=== PATIENT | female | born 1980 | race Caucasian/White ===

== ENCOUNTER 2017-08-19 12:30 | Observation (INO) ==
[2017-08-19 13:14] LABS: Basophils % 0.4 %; Eosinophils # 0.1 K/mcL (0.0-0.6); Eosinophils % 1.4 %; Hematocrit 34.4 % (35.3-44.9); Hemoglobin 11.1 g/dL (11.5-15.4); Immature Granulocytes % 0.2 % (0-4); Lymphocytes # 1.3 K/mcL (0.6-4.6); Lymphocytes % 25.3 %; Mean Corpuscular HGB Conc 32.3 g/dL (31.6-35.5); Mean Corpuscular Hemoglobin 29.5 pg (28.0-33.3); Mean Corpuscular Volume 91.5 fL (83.0-100.0); Mean Platelet Volume 10.8 fL (9.4-12.4); Monocytes # 0.3 K/mcL (0.0-1.3); Monocytes % 6.5 %; Neutrophils # 3.3 K/mcL (1.6-8.9); Platelet Count 183 K/mcL (140-400); Red Blood Count 3.76 M/mcL (3.82-4.97); Red Cell Distribution Width 13.2 % (11.5-14.5); Segmented Neutrophils % 66.2 %
[2017-08-19] MEDS ORDERED: Isovue-370 500 ML INFUS..BTL IV ONE ×2 (13:18→15:22)
[2017-08-19 13:20] LABS: Prothrombin Time 10.7 Seconds (9.4-12.1)
--- NOTE | 2017-08-19 13:21 | Emergency Department Note ---
Disposition Clinical Impression: Chest pain Qualifiers: Chest pain type: unspecified Qualified Code(s): R07.9 - Chest pain, unspecified Disposition: Admitted As Inpatient Condition: Fair Instructions: Chest Pain (ED), Anxiety (ED) Reasons to Return/Additional Instructions: Please return immediately for any new or worsening symptoms, especially pain associated with exertion or shortness of breath. Otherwise, refrain from strenuous activity until cleared by your doctor. Follow up with your doctor within 2-4 days. Call [phone] or [phone] if you need a doctor. Make sure to plan appropriate follow-up for the findings of pulmonary nodules on today's CT scan. Referrals: Zunilda Gould CNP [Primary Care Provider] - Forms: ED Satisfaction Letter Time of Disposition: 19:17 Chest Pain HPI - General Chief Complaint: ED Chest Pain Stated Complaint: CP Time Seen by Provider: 08/19/17 13:02 Source: patient, family Limitations: no limitations Vital Signs Reviewed: Yes Nursing Notes Reviewed: Yes - History of Present Illness HPI Narrative: 37-year-old female complains of pressure with chest palpitations that converted to sharp chest pain 3 hours ago, but has been having several days of chest pain. Patient states intensity was 8/10 with radiation of pain down the left upper extremity, chest pain worse with exertion. She also states that she had pain left lateral cervical posterior region started 20 minutes after the onset of chest pain. The onset of her neck and shoulder pain, precipitated patient's increased concern to come to the emergency department. Patient states she had associated left upper extremity weakness and numbness in upper and lower extremities. weakness has resolved but still complains of strange sensation in her left shoulder and left upper extremity. 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 And she usually carries everything with her left arm. Review of symptoms: Patient complained of lightheadedness, dizziness but no headache History of anxiety but states this feels different from her anxiety attacks. Severity scale (1-10): 4 - Related Data Home Medications Medication Instructions Recorded Confirmed Aspirin/Acetaminophen/Caffeine 1 - 2 tab PO DAILY PRN 08/19/17 08/19/17 [Excedrin Migraine Caplet] Ibuprofen [Motrin] 200 mg PO Q4HR PRN 08/19/17 08/19/17 Allergies Allergy/AdvReac Type Severity Reaction Status Date / Time shellfish derived Allergy Anaphylaxis Verified 08/19/17 20:17 nitrofurantoin AdvReac Vomiting Verified 08/19/17 20:17 [From Macrobid] All systems ED: reviewed and negative except as stated. 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 - Social History Smoking Status: Never smoker Alcohol use: Reports: none Drug use: Reports: none Physical Exam Vital Signs Temperature 98.0 F 08/19/17 12:31 Pulse Rate 96 08/19/17 12:31 Respiratory Rate 22 08/19/17 12:31 Blood Pressure 149/80 08/19/17 12:31 O2 Sat by Pulse Oximetry 98 08/19/17 12:31 Temperature 98.0 F 08/19/17 12:31 Pulse Rate 96 08/19/17 12:31 Respiratory Rate 22 08/19/17 12:31 Blood Pressure 149/80 08/19/17 12:31 O2 Sat by Pulse Oximetry 98 08/19/17 12:31 Oxygen Delivery Oxygen Delivery Room Air CONSTITUTIONAL: Well-appearing; well-nourished; A&O X 3, very histrionic and description of her symptoms, in no apparent distress. Patient has GCS 15. HEAD: Normocephalic; atraumatic EYES: PERRL, no scleral icterus NOSE: The nose is normal in appearance without rhinorrhea NECK: No JVD or distended neck veins RESP: Normal chest excursion with respiration; breath sounds clear and equal bilaterally; no wheezes, rhonchi, or rales CARD: Regular rhythm, without murmurs, rub or gallop ABD: Non-distended; non-tender, soft, without rigidity, rebound or guarding,no pulsatile mass CHEST: No pain with palpation SKIN: Normal for age and race; warm and dry without diaphoresis ; no apparent lesions EXTREMITIES: Pulses are 2 plus and equal times 4 extremities, no peripheral edema or calf muscle pain NEUROLOGICAL: Patient is alert and oriented times three. Cranial nerves III- XII are intact. Sensory decreased to palpation left upper extremity, but no motor functions are intact. Strength is 5/5 for flexion and extension in all 4 extremities. Patellar DTRS are equal and intact. Finger to nose testing is equal and normal bilaterally. No dysdiadochokinesis - General Limitations: no limitations General appearance: alert, anxious Course - Reevaluation(s) Reevaluation #1: 0.5 IV Ativan in order for patient's anxiety. Time: 13:56 Reevaluation #2: Patient's contrast studies a CTA change to MR because patient's allergy to contrast. 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 Time: 14:27 Reevaluation #3: Patient pain symptoms are improved after receiving 0.5 mg Ativan. Currently awaiting CT. She is being prophylaxed with Benadryl due to her allergy. Time: 16:35 Additional Reevaluation(s): 1735hrs: Patient was taken him to receive CTS scan of head neck and chest - Consultations Consultation #1: Dr. Moon the hospitalist as except the patient for admission Time: 20:40 Vital Signs Temperature 98.0 F 08/19/17 12:31 Pulse Rate 96 08/19/17 12:31 Respiratory Rate 22 08/19/17 12:31 Blood Pressure 149/80 08/19/17 12:31 O2 Sat by Pulse Oximetry 98 08/19/17 12:31 Temperature 98.0 F 08/19/17 12:31 Pulse Rate 95 08/19/17 20:35 Respiratory Rate 18 08/19/17 20:35 Blood Pressure 119/79 08/19/17 20:35 O2 Sat by Pulse Oximetry 97 08/19/17 20:35 Oxygen Delivery Oxygen Delivery Room Air Chest Pain - [facility] Narrative Medical decision making narrative: Patient's description of her neck pain with neurological deficits in her left upper and lower extremity concerning for possible vertebral artery dissection, aortic dissection and has been sent for CT head, CTA neck and chest. Labs simvastatin patient's chest pain ordered to include CBC, BMP, troponin. Current heart score 2. Patient sent for CTA of the neck and chest but was delayed because of her severe shellfish allergy. Patient was prophylaxed with Benadryl. After appropriate waiting time patient was then sent for CT scans which came back negative for any signs of dissection of the vertebral arteries or aorta. Patient lab work was negative for elevation of troponin Patient's lab work is unremarkable with a troponin that is negative for any elevation after several days of chest pain. It was explained to the patient that she is low risk for adverse cardiac events , but low risk does not mean no risk. She has been instructed to return immediately if she has any worsening symptoms at any time. She is relieved that her workup is negative today to seek follow-up with her primary care physician Zunilda Gould CMP into 4 days. Patient has been advised to use ice to help reduce inflammation of her left- sided trapezius muscles are tender to palpation, as well as her shoulder. She is already taking ibuprofen daily. She has also been instructed to get plenty of rest. Patient understands and agrees to treatment plan. After patient received repeat EKG prior to discharge she stated that she started having chest pain again. Chest pressure is 5/10 intensity and constant. Patient is now been advised to stay for further evaluation inpatient. Patient understands and agrees to treatment plan. Repeat troponin ordered and patient was begun Nitrol trial. Dr. Moon the hospitalist has accepted the patient for admission. Pt is currently pain free after nitroglycerin trial. One inch nitro paste applied to patient's chest. - Lab Data Lab results reviewed: Yes I reviewed the patient's lab results. Lab results narrative: Short CBC 08/19/17 Range/Units 12:49 WBC 5.1 (4.3-11.1) K/mcL Hgb 11.1 L (11.5-15.4) g/dL Hct 34.4 L (35.3-44.9) % Plt Count 183 (140-400) K/mcL Neutrophils # 3.3 (1.6-8.9) K/mcL BMP 08/19/17 Range/Units 12:49 Sodium 136 (136-145) mEq/L Potassium 3.7 (3.5-5.1) mEq/L Chloride 105 (98-107) mEq/L Carbon Dioxide 27 (23-29) mEq/L BUN 12 (6-20) mg/dL Creatinine 0.73 (0.60-1.20) mg/dL Glucose 111 H (70-105) mg/dL Calcium 9.2 (8.6-10.3) mg/dL Cardiac Enzymes 08/19/17 Range/Units 12:49 Troponin I < 0.03 (< 0.04) ng/mL Result diagrams: 08/19/17 12:49 08/19/17 12:49 Lab Results 08/19/17 08/19/17 08/19/17 Range/Units 12:39 12:49 12:49 WBC 5.1 (4.3-11.1) K/mcL RBC 3.76 L (3.82-4.97) M/mcL Hgb 11.1 L (11.5-15.4) g/dL Hct 34.4 L (35.3-44.9) % MCV 91.5 (83.0-100.0) fL MCH 29.5 (28.0-33.3) pg MCHC 32.3 (31.6-35.5) g/dL RDW 13.2 (11.5-14.5) % Plt Count 183 (140-400) K/mcL MPV 10.8 (9.4-12.4) fL Immature Gran % 0.2 (0-4) % Seg Neutrophils % 66.2 % Lymphocytes % 25.3 % Monocytes % 6.5 % Eosinophils % 1.4 % Basophils % 0.4 % Neutrophils # 3.3 (1.6-8.9) K/mcL Lymphocytes # 1.3 (0.6-4.6) K/mcL Monocytes # 0.3 (0.0-1.3) K/mcL Eosinophils # 0.1 (0.0-0.6) K/mcL Basophils # 0.0 (0.0-0.2) K/mcL PT 10.7 (9.4-12.1) Seconds INR 1.0 APTT 30.1 (26.0-36.0) Seconds Sodium 136 (136-145) mEq/L Potassium 3.7 (3.5-5.1) mEq/L Chloride 105 (98-107) mEq/L Carbon Dioxide 27 (23-29) mEq/L BUN 12 (6-20) mg/dL Creatinine 0.73 (0.60-1.20) mg/dL Est GFR ( Amer) > 60 (> 60) Est GFR (Non-Af Amer) > 60 (> 60) BUN/Creatinine Ratio 16 (6-26) Glucose 111 H (70-105) mg/dL Calculated Osmolality 282 (280-300) Calcium 9.2 (8.6-10.3) mg/dL Troponin I < 0.03 (< 0.04) ng/mL Beta HCG, Quant < 1 (Less than 5) mIU/mL 08/19/17 Range/Units 20:09 WBC (4.3-11.1) K/mcL RBC (3.82-4.97) M/mcL Hgb (11.5-15.4) g/dL Hct (35.3-44.9) % MCV (83.0-100.0) fL MCH (28.0-33.3) pg MCHC (31.6-35.5) g/dL RDW (11.5-14.5) % Plt Count (140-400) K/mcL MPV (9.4-12.4) fL Immature Gran % (0-4) % Seg Neutrophils % % Lymphocytes % % Monocytes % % Eosinophils % % Basophils % % Neutrophils # (1.6-8.9) K/mcL Lymphocytes # (0.6-4.6) K/mcL Monocytes # (0.0-1.3) K/mcL Eosinophils # (0.0-0.6) K/mcL Basophils # (0.0-0.2) K/mcL PT (9.4-12.1) Seconds INR APTT (26.0-36.0) Seconds Sodium (136-145) mEq/L Potassium (3.5-5.1) mEq/L Chloride (98-107) mEq/L Carbon Dioxide (23-29) mEq/L BUN (6-20) mg/dL Creatinine (0.60-1.20) mg/dL Est GFR ( Amer) (> 60) Est GFR (Non-Af Amer) (> 60) BUN/Creatinine Ratio (6-26) Glucose (70-105) mg/dL Calculated Osmolality (280-300) Calcium (8.6-10.3) mg/dL Troponin I < 0.03 (< 0.04) ng/mL Beta HCG, Quant (Less than 5) mIU/mL - Radiology Data Radiology results reviewed: Yes I reviewed the patient's radiology results. Chest X-Ray 08/19/17 12:39 IMPRESSION: 1. No acute cardiopulmonary disease. D/ / Alcon Valdez MD / Alcon Valdez MD Interpreting Provider: Alcon Valdez MD Head CT 08/19/17 13:18 IMPRESSION: No acute intracranial abnormality. D/ / Virgil Bhatia MD / Virgil Bhatia MD Interpreting Provider: Virgil Bhatia MD Chest CTA 08/19/17 15:22 IMPRESSION: No evidence of acute abnormality involving the thoracic aorta, noting that evaluation of the root is limited due to cardiac motion. No acute abnormality identified in the chest. Two indeterminate pulmonary nodules in the right lung as detailed above. Follow-up recommendations as below. RECOMMENDATIONS: Fleischner Society guidelines for follow-up and management of incidentally detected pulmonary nodules: Multiple Solid Nodules: Nodule size less than 6 mm In a low-risk patient, no routine follow-up. In a high-risk patient, optional CT at 12 months. - Low risk patients include individuals with minimal or absent history of smoking and other known risk factors. - High risk patients include individuals with a history or smoking or known risk factors. Radiology 2017 http://pubs.rsna.org/doi/full/10.1148/radiol.[email or web address] D/ / 08/19/2017 18:25:59 Gaston Negro MD / terry Interpreting Provider: Gaston Negro MD Neck CTA 08/19/17 15:22 IMPRESSION: 1. Unremarkable CTA of the neck. 2. Dental caries, as above. D/ / 08/19/2017 18:16:19 [facility] Valdez MD / [facility] Inter[facility]ting Provider: Alcon Valdez MD - EKG Data EKG attestation: Yes I reviewed and interpreted this EKG. EKG results narrative: EKG taken 08/19/2017 1235 hrs. shows a sinus tachycardia at a rate of [address] elevations in leads but shows some mild ST depression in V5 and 6 with T-wave inversions in lead 3. No signs of Brugada, Wellens, WPW. Appears EKG for comparison taken 12/03/2015 shows similar waveform morphology seen today with the exception of the V 5& 6 changes and T-wave inversion EKG #2 taken at 1923 [address] shows [address] ST changes and previously earlier today.. Heart Score - Score History: Moderately Suspicious EKG: Non Specific repolarisation Disturbance Age: Less than 45 Risk Factors: No risk factors known Troponin: Less than normal limit HEART Score Total: 2
[2017-08-19 13:23] LABS: Activated Partial Thrombo Time 30.1 Seconds (26.0-36.0)
[2017-08-19] MEDS ORDERED: *HR* LORazepam 2 MG/ML VIAL IVP ONE (13:28)
[2017-08-19] MEDS ORDERED: 0.9 % Sodium Chloride 1,000 ML IVC ONE ×2 (13:28→19:36)
[2017-08-19 13:33] LABS: BUN/Creatinine Ratio 16 (6-26); Blood Urea Nitrogen 12 mg/dL (6-20); Calcium 9.2 mg/dL (8.6-10.3); Carbon Dioxide 27 mEq/L (23-29); Chloride 105 mEq/L (98-107); Glucose 111 mg/dL (70-105); Osmolality,Calculated 282 (280-300); Potassium 3.7 mEq/L (3.5-5.1); Sodium 136 mEq/L (136-145); Troponin I < 0.03 ng/mL (< 0.04); eGFR For African Americans > 60 (> 60); eGFR For Non-African Americans > 60 (> 60)
--- NOTE | 2017-08-19 13:39 | Emergency Department Note ---
Disposition Clinical Impression: Chest pain Qualifiers: Chest pain type: unspecified Qualified Code(s): R07.9 - Chest pain, unspecified Disposition: Home, Self-Care Condition: Good Instructions: Chest Pain (ED), Anxiety (ED) Reasons to Return/Additional Instructions: Please return immediately for any new or worsening symptoms, especially pain associated with exertion or shortness of breath. Otherwise, refrain from strenuous activity until cleared by your doctor. Follow up with your doctor within 2-4 days. Call [phone] or [phone] if you need a doctor. Make sure to plan appropriate follow-up for the findings of pulmonary nodules on today's CT scan. Referrals: Zunilda Gould CNP [Primary Care Provider] - Forms: ED Satisfaction Letter General Adult HPI - General Chief complaint: ED Chest Pain Stated complaint: CP Time Seen by Provider: 08/19/17 13:02 Source: patient, family Limitations: no limitations - History of Present Illness Pain Scale: 4 - Related Data Home Medications Medication Instructions Recorded Confirmed ClonazePAM 08/27/16 08/27/16 Previous Rx's Medication Instructions Recorded Amoxicillin 875 mg PO BID #14 tablet 04/11/17 Allergies Allergy/AdvReac Type Severity Reaction Status Date / Time shellfish derived Allergy Anaphylaxis Verified 04/11/17 17:55 nitrofurantoin AdvReac Vomiting Verified 04/11/17 17:55 [From Macrobid] Constitutional: Denies: fever, chills, weakness ENT ED: Denies: congestion Cardiovascular: Reports: chest pain, palpitations Past Medical History - Past Medical History Medical history: Reports: DVT Surgical history: Reports: Psychiatric history: Reports: anxiety 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 - Social History Smoking Status: Never smoker Smokeless Tobacco Status: No Alcohol use: Reports: none Drug use: Reports: none Physical Exam - General Limitations: no limitations General appearance: alert, anxious Course Vital Signs Temperature 98.0 F 08/19/17 12:31 Pulse Rate 96 08/19/17 12:31 Respiratory Rate 22 08/19/17 12:31 Blood Pressure 149/80 08/19/17 12:31 O2 Sat by Pulse Oximetry 98 08/19/17 12:31 Temperature 98.0 F 08/19/17 12:31 Pulse Rate 98 08/19/17 17:43 Respiratory Rate 18 08/19/17 17:43 Blood Pressure 142/84 08/19/17 17:43 O2 Sat by Pulse Oximetry 99 08/19/17 17:43 Oxygen Delivery Oxygen Delivery Room Air Medical Decision Making - Lab Data Result diagrams: 08/19/17 12:49 08/19/17 12:49 Lab Results 08/19/17 08/19/17 08/19/17 Range/Units 12:39 12:49 12:49 WBC 5.1 (4.3-11.1) K/mcL RBC 3.76 L (3.82-4.97) M/mcL Hgb 11.1 L (11.5-15.4) g/dL Hct 34.4 L (35.3-44.9) % MCV 91.5 (83.0-100.0) fL MCH 29.5 (28.0-33.3) pg MCHC 32.3 (31.6-35.5) g/dL RDW 13.2 (11.5-14.5) % Plt Count 183 (140-400) K/mcL MPV 10.8 (9.4-12.4) fL Immature Gran % 0.2 (0-4) % Seg Neutrophils % 66.2 % Lymphocytes % 25.3 % Monocytes % 6.5 % Eosinophils % 1.4 % Basophils % 0.4 % Neutrophils # 3.3 (1.6-8.9) K/mcL Lymphocytes # 1.3 (0.6-4.6) K/mcL Monocytes # 0.3 (0.0-1.3) K/mcL Eosinophils # 0.1 (0.0-0.6) K/mcL Basophils # 0.0 (0.0-0.2) K/mcL PT 10.7 (9.4-12.1) Seconds INR 1.0 APTT 30.1 (26.0-36.0) Seconds Sodium 136 (136-145) mEq/L Potassium 3.7 (3.5-5.1) mEq/L Chloride 105 (98-107) mEq/L Carbon Dioxide 27 (23-29) mEq/L BUN 12 (6-20) mg/dL Creatinine 0.73 (0.60-1.20) mg/dL Est GFR ( Amer) > 60 (> 60) Est GFR (Non-Af Amer) > 60 (> 60) BUN/Creatinine Ratio 16 (6-26) Glucose 111 H (70-105) mg/dL Calculated Osmolality 282 (280-300) Calcium 9.2 (8.6-10.3) mg/dL Troponin I < 0.03 (< 0.04) ng/mL Beta HCG, Quant < 1 (Less than 5) mIU/mL - Radiology Data Radiology results reviewed: Yes I reviewed the patient's radiology results. Chest X-Ray 08/19/17 12:39 IMPRESSION: 1. No acute cardiopulmonary disease. D/ / Alcon Valdez MD / Alcon Valdez MD Interpreting Provider: Alcon Valdez MD Head CT 08/19/17 13:18 IMPRESSION: No acute intracranial abnormality. D/ / Virgil Bhatia MD / Virgil Bhatia MD Interpreting Provider: Virgil Bhatia MD Chest CTA 08/19/17 15:22 IMPRESSION: No evidence of acute abnormality involving the thoracic aorta, noting that evaluation of the root is limited due to cardiac motion. No acute abnormality identified in the chest. Two indeterminate pulmonary nodules in the right lung as detailed above. Follow-up recommendations as below. RECOMMENDATIONS: Fleischner Society guidelines for follow-up and management of incidentally detected pulmonary nodules: Multiple Solid Nodules: Nodule size less than 6 mm In a low-risk patient, no routine follow-up. In a high-risk patient, optional CT at 12 months. - Low risk patients include individuals with minimal or absent history of smoking and other known risk factors. - High risk patients include individuals with a history or smoking or known risk factors. Radiology 2017 http://pubs.rsna.org/doi/full/10.1148/radiol.[email or web address] D/ / 08/19/2017 18:25:59 Gaston Negro MD / terry Interpreting Provider: Gaston Negro MD Neck CTA 08/19/17 15:22 IMPRESSION: 1. Unremarkable CTA of the neck. 2. Dental caries, as above. D/ / 08/19/2017 18:16:19 Alcon Valdez MD / [facility] Interpreting Provider: Alcon Valdez MD Attestation Statement - Attestation Attestation: I examined this patient and my medical decision-making was reviewed with the Resident Physician. I agree with the documented findings, disposition and treatment plan as described except to the extent set forth below. Patient to the ED with a chief complaint of chest pain. Patient described a sensation in her chest that went to her left arm and leg. Arm and leg symptoms and resolved. Her chest feels better as well. She is complaining of an ache in her posterior left shoulder. No cardiac history. She does have a history of palpitations and has had a Holter monitor in the past. She is in no distress on examination with clear lungs and heart regular rate and rhythm. Plan. Cardiac workup. Her cardiac workup is negative and her imaging is unremarkable. Do not believe she is a dissection. She is low risk for coronary disease. She is to follow- up with her PCP to discuss further outpatient workup. Patient began having chest pain. She has an EKG that shows anteroseptal T-wave flattening. Nonspecific inversion in lead 3. We will admit for further cardiac workup.
[2017-08-19] MEDS ORDERED: MethylPREDNISolone 40 MG/ML VIAL IVP ONE (15:35)
--- NOTE | 2017-08-19 19:00 | Electrocardiograph Report ---
[address] [address] Test Date: 2017-08-19 Pat Name: Zunilda Colin Department: 104 Room: Gender: F Telemetry Monitor: : 1980 Requested By: Ankur Sosa Order Number: [id number] Reading MD: Erika Lai Measurements Intervals [place] Rate: 104 P: 8 GA: 128 QRS: 40 QRSD: 86 T: 12 QT: 322 QTc: 383 Interpretive Statements SINUS TACHYCARDIA ABNORMAL RHYTHM ECG Electronically Signed On 08-19-2017 18:58:34 EDT by Erika Lai
[2017-08-19] MEDS ORDERED: Nitroglycerin 0.4 MG TAB.SUBL SL PRN (19:36)
[2017-08-19] MEDS ORDERED: Nitroglycerin 1 INCH/GM PACKET TP ONE (20:42)
[2017-08-19] MEDS ORDERED: Naloxone 0.4 MG/ML INJ IVP PRN (20:54)
--- NOTE | 2017-08-19 20:58 | Internal Med History&Physical ---
Date of Encounter: 08/19/17 Time of Encounter: 20:55 Internal Medicine - H&P: HPI Chief complaint: Chest pain Admitted From: Emergency Dept Plans for Post Hospital Care: Home History of present illness: Ms. Colin is a 37 year old female with history of obesity, migraine headaches who presents with complaints of chest pressure and palpitation for a few days that has worsened to sharp pressure for the last 3 hours before presentation to the ED this afternoon. She was working today when she experienced the pain and reported significant diaphoresis during the episode. Her boss told her to sit down and then sent her to the ED. The pain was felt in the mid chest with radiation to the left arm and neck. It was worth with exertion. 8/10 in intensity. No alleviating factors. The patient also reports left upper extremity weakness and numbness that has been going on for some time as well. She still complains of feeling strange in the left upper extremity however. 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 In the emergency department given her symptoms she was ruled out aortic or vertebral dissection. She had laboratory workup that was unremarkable including troponins within normal limits. She received initially Ativan for possible anxiety and she did feel somewhat improved with that. She was about to get discharged as her EKG showed some nonspecific finding however she had recurrence of her chest pain and was given nitroglycerin the second time and her symptoms improved significantly. She had a repeat EKG which was similar to the one from prior. EKG showed initially sinus tachycardia with no ST elevation with mild ST depression in V5 and V6 with T-wave inversion in lead 3. This was similar on repeat EKG during her second episode of chest pain. Grandparents both had "massive heart attacks". She used to smoke 1 1/2 pack per day for 5 years but now smoke occasionally when stressed. Been having 2 years of dizziness symptoms and had a holter monitor 2 years ago with occasional PACs and PVCs and a TTE that was unremarkable then. It was attributed to stress at the time. Has been stressed out lately as well. Patient denies any fever, chills, nausea, vomiting, abdominal pain, urinary symptoms, or neurological symptoms. Past Med Surg Social Fam HX - Past Medical History Medical history: DVT Psychiatric history: anxiety - Past Surgical History Surgical History: - Social History Smoking Status: Never smoker Smokeless Tobacco Status: No Alcohol use: none Drug use: none - Family History Father Hx Family Cardiac Disorders: Yes Internal Medicine - H&P: Meds Aspirin/Acetaminophen/Caffeine [Excedrin Migraine Caplet] 1 - 2 tab PO DAILY PRN 08/19/17 [History] Ibuprofen [Motrin] 200 mg PO Q4HR PRN 08/19/17 [History] 3 Allergy/AdvReac Type Severity Reaction Status Date / Time shellfish derived Allergy Anaphylaxis Verified 08/19/17 20:17 nitrofurantoin AdvReac Vomiting Verified 08/19/17 20:17 [From Macrobid] All Systems PM: A 10-system review of systems was performed and is negative for pertinent findings except as documented above in the HPI. Review of systems: All systems reviewed are negative except for as mentioned above - Constitutional Vitals: Temp Pulse Resp BP Pulse Ox 98.0 F 95 18 119/79 97 08/19/17 12:31 08/19/17 20:35 08/19/17 20:35 08/19/17 20:35 08/19/17 20:35 Exam: GEN: NAD HEENT: AT, NC, No cyanosis, oral mucosa is moist, No JVD Lymphatics: No lymphadenoapthy Eyes: Extrocular muscles intact, anicteric CVS:RRR. S1, S2, No m/r/g RESP: CTAB ABD: Soft, NT, ND, +BS EXT: No edema, No rashes, 2+ DP NEURO: Nonfocal, CN II-XII intact, No focal motor or sensory deficits Psych: Cooperative, Not anxious or depressed Internal Med - H&P Results - Labs CBC & Chem 7: 08/19/17 12:49 08/19/17 12:49 Labs: Short CBC 08/19/17 Range/Units 12:49 WBC 5.1 (4.3-11.1) K/mcL Hgb 11.1 L (11.5-15.4) g/dL Hct 34.4 L (35.3-44.9) % Plt Count 183 (140-400) K/mcL Neutrophils # 3.3 (1.6-8.9) K/mcL BMP 08/19/17 12:49 Sodium 136 Potassium 3.7 Chloride 105 Carbon Dioxide 27 BUN 12 Creatinine 0.73 Glucose 111 H Calcium 9.2 Cardiac Enzymes 08/19/17 08/19/17 Range/Units 12:49 20:09 Troponin I < 0.03 < 0.03 (< 0.04) ng/mL - Impressions ITS Impressions Chest X-Ray 08/19/17 12:39 IMPRESSION: 1. No acute cardiopulmonary disease. D/ / Alcon Valdez MD / Alcon Valdez MD Interpreting Provider: Alcon Valdez MD Head CT 08/19/17 13:18 IMPRESSION: No acute intracranial abnormality. D/ / Virgil Bhatia MD / Virgil Bhatia MD Interpreting Provider: Virgil Bhatia MD Chest CTA 08/19/17 15:22 IMPRESSION: No evidence of acute abnormality involving the thoracic aorta, noting that evaluation of the root is limited due to cardiac motion. No acute abnormality identified in the chest. Two indeterminate pulmonary nodules in the right lung as detailed above. Follow-up recommendations as below. RECOMMENDATIONS: Fleischner Society guidelines for follow-up and management of incidentally detected pulmonary nodules: Multiple Solid Nodules: Nodule size less than 6 mm In a low-risk patient, no routine follow-up. In a high-risk patient, optional CT at 12 months. - Low risk patients include individuals with minimal or absent history of smoking and other known risk factors. - High risk patients include individuals with a history or smoking or known risk factors. Radiology 2017 http://pubs.rsna.org/doi/full/10.1148/radiol.[email or web address] D/ / 08/19/2017 18:25:59 Gaston Negro MD / terry Interpreting Provider: Gaston Negro MD Neck CTA 08/19/17 15:22 IMPRESSION: 1. Unremarkable CTA of the neck. 2. Dental caries, as above. D/ / 08/19/2017 18:16:19 Alcon Valdez MD / chase Interpreting Provider: Alcon Valdez MD - Assessment and plan (1) Chest pain Current Visit: Yes Status: Acute Assessment and plan: Admit the patient. Telemetry. Risk factors include obesity, prior smoking history, grandparents with GA's. Symptoms been going on for some time but today sound typical. We will trend cardiac enzymes. Stress test in the morning. Given aspirin in the ED. We will check lipid panel and A1c for risk stratification. Nothing by mouth after midnight Qualifiers: Chest pain type: unspecified Qualified Code(s): R07.9 - Chest pain, unspecified (2) Pulmonary nodule Current Visit: Yes Status: Acute Assessment and plan: Serial follow-ups in the future. (3) DVT prophylaxis Current Visit: Yes Status: Acute Assessment and plan: Heparin subcutaneous - Time Spent With Patient Total time spent is greater than 50% in coordination of care (as documented) at patient's floor/unit and/or counseling patient:
[2017-08-19] MEDS: *HR* Heparin 5,000 UNIT/ML VIAL SQ SCH (22:11)
[2017-08-19] MEDS: Acetaminophen 325 MG TABLET PO PRN (22:24)
[2017-08-20 02:16] LABS: BUN/Creatinine Ratio 15 (6-26); Blood Urea Nitrogen 10 mg/dL (6-20); Calcium 9.4 mg/dL (8.6-10.3); Carbon Dioxide 24 mEq/L (23-29); Chloride 108 mEq/L (98-107); Chol/HDL Ratio 3.1 (0-4.9); Cholesterol 159 mg/dL (< 200); Glucose 219 mg/dL (70-105); HDL Cholesterol 51 mg/dL (40-59); LDL Cholesterol,Calculated 100 mg/dL (0-99); Magnesium 1.9 mg/dL (1.6-2.6); Osmolality,Calculated 292 (280-300); Sodium 138 mEq/L (136-145); Triglycerides 40 mg/dL (< 150); eGFR For African Americans > 60 (> 60); eGFR For Non-African Americans > 60 (> 60)
[2017-08-20] MEDS: *HR* Heparin 5,000 UNIT/ML VIAL SQ SCH ×3 (05:08→22:19)
[2017-08-20] MEDS ORDERED: Regadenoson 0.4 MG/5 ML SYRINGE IVP ONE (05:53)
[2017-08-20] MEDS: Acetaminophen 325 MG TABLET PO PRN ×2 (09:24→20:10)
--- NOTE | 2017-08-20 14:29 | Internal Med Progress Note ---
Date of Encounter: 08/20/17 Time of Encounter: 10:00 - Assessment and plan (1) Chest pain Current Visit: Yes Status: Acute Assessment and plan: She underwent first half of 2 day stress, she will complete second half on Tuesday. No chest pain at this time continue cardiac monitoring lipid panel looks good will monitor as outpatient cont ASA Nitro as needed for CP Qualifiers: Chest pain type: unspecified Qualified Code(s): R07.9 - Chest pain, unspecified (2) Pulmonary nodule Current Visit: Yes Status: Acute Assessment and plan: Follow up and monitor with PCP (3) DVT prophylaxis Current Visit: Yes Status: Acute Assessment and plan: Heparin subcutaneous - Time Spent With Patient Total time spent is greater than 50% in coordination of care (as documented) at patient's floor/unit and/or counseling patient: - Subjective Interval history: Patient seen and examined at bedside. Denies any pain or discomfort at this time. Did have some GERD sx earlier this am. She completed the first half of 2 day stress. She will complete second half on Tuesday. I reviewed plan of care with patient and she verbalized understanding - Constitutional Vitals: Temp Pulse Resp BP Pulse Ox 97.9 F 85 16 130/70 96 08/20/17 11:28 08/20/17 11:28 08/20/17 11:28 08/20/17 11:28 08/20/17 11:28 General appearance: Present: A&O X 3, morbidly obese - Head Head exam: Present: atraumatic, normocephalic - Eye Eye exam: Present: PERRL, conjuntiva pink, sclera anicteric Pupils: Present: PERRL - Neck Neck exam general surgery: Present: supple, trachea midline. Absent: lymphadenopathy - Respiratory Respiratory exam: Present: CTAB. Absent: accessory muscle use, rales, rhonchi, wheezes - Cardiovascular Cardiovascular exam: Present: RRR, +S1, +S2. Absent: diastolic murmur, gallop, rubs, systolic murmur - GI/Abdominal GI/Abdominal exam: Present: normal bowel sounds, soft, no peritoneal signs. Absent: distended, tenderness - Extremities Exam Extremities exam: Present: warm, radial pulses palpable and symmetrical. Absent : calf tenderness, cyanotic, pedal edema - Neurological Exam Neurological exam: Present: CN II-XII intact, oriented X3, no focal deficits. Absent: pronater drift, facial droop, speech deficit - Skin Skin exam: Present: dry, intact Internal Medicine: Result - Labs CBC & Chem 7: 08/19/17 12:49 08/20/17 01:41 Labs: BMP 08/20/17 01:41 Sodium 138 Potassium 4.0 Chloride 108 H Carbon Dioxide 24 BUN 10 Creatinine 0.66 Glucose 219 H Calcium 9.4 Cardiac Enzymes 08/20/17 Range/Units 01:41 Troponin I < 0.03 (< 0.04) ng/mL - ABG Interpretation ABG results: PT/INR, D-dimer PT 10.7 Seconds (9.4-12.1) 08/19/17 12:39 Consult Discharge Plan - Plan Referrals: Zunilda Gould, CARD DOFFER [Primary Care Provider] -
[2017-08-21] MEDS: Acetaminophen 325 MG TABLET PO PRN (05:16)
[2017-08-21] MEDS: *HR* Heparin 5,000 UNIT/ML VIAL SQ SCH ×3 (05:16→21:46)
[2017-08-21 08:20] LABS: Estimated Average Glucose 103 mg/dl; Hemoglobin A1C 5.2 %
[2017-08-21] MEDS: Aspirin 81 MG TAB.CHEW PO SCH (08:38)
--- NOTE | 2017-08-21 10:04 | Internal Med Progress Note ---
Date of Encounter: 08/21/17 Time of Encounter: 10:01 - Assessment and plan (1) Chest pain Current Visit: Yes Status: Acute Assessment and plan: She underwent first half of 2 day stress, she will complete second half on Tuesday. No chest pain at this time -NPO after midnight continue cardiac monitoring lipid panel looks good will monitor as outpatient cont ASA Nitro as needed for CP will check hepatic panel amylase lipase Qualifiers: Chest pain type: unspecified Qualified Code(s): R07.9 - Chest pain, unspecified (2) Pulmonary nodule Current Visit: Yes Status: Acute Assessment and plan: Follow up and monitor with PCP (3) DVT prophylaxis Current Visit: Yes Status: Acute Assessment and plan: Heparin subcutaneous - Time Spent With Patient Total time spent is greater than 50% in coordination of care (as documented) at patient's floor/unit and/or counseling patient: - Subjective Interval history: Patient seen and examined at bedside. Denies any pain or discomfort at this time. Did have some GERD sx earlier this am. She will be NPO after midnight for second half of stress. Reviewed treatment plan with patient Verbalized understanding - Constitutional Vitals: Temp Pulse Resp BP Pulse Ox 98.8 F 62 16 100/65 98 08/21/17 07:35 08/21/17 07:35 08/21/17 07:35 08/21/17 07:35 08/21/17 07:35 General appearance: Present: A&O X 3, morbidly obese - Head Head exam: Present: atraumatic, normocephalic - Eye Eye exam: Present: PERRL, conjuntiva pink, sclera anicteric Pupils: Present: PERRL - Neck Neck exam general surgery: Present: supple, trachea midline. Absent: lymphadenopathy - Respiratory Respiratory exam: Present: CTAB. Absent: accessory muscle use, rales, rhonchi, wheezes - Cardiovascular Cardiovascular exam: Present: RRR, +S1, +S2. Absent: diastolic murmur, gallop, rubs, systolic murmur - GI/Abdominal GI/Abdominal exam: Present: normal bowel sounds, soft, no peritoneal signs. Absent: distended, tenderness - Extremities Exam Extremities exam: Present: warm, radial pulses palpable and symmetrical. Absent : calf tenderness, cyanotic, pedal edema - Neurological Exam Neurological exam: Present: CN II-XII intact, oriented X3, no focal deficits. Absent: pronater drift, facial droop, speech deficit - Skin Skin exam: Present: dry, intact Internal Medicine: Result - Labs CBC & Chem 7: 08/19/17 12:49 08/20/17 01:41 Labs: Cardiac Enzymes 08/20/17 08/20/17 08/21/17 Range/Units 13:40 20:39 02:53 Troponin I < 0.03 < 0.03 < 0.03 (< 0.04) ng/mL 08/21/17 Range/Units 08:47 Troponin I < 0.03 (< 0.04) ng/mL - ABG Interpretation ABG results: PT/INR, D-dimer PT 10.7 Seconds (9.4-12.1) 08/19/17 12:39 - VTE Documentation of Mechanical Device: Intermittent pneumatic compression device Consult Discharge Plan - Plan Referrals: Zunilda Gould, RIGGING UP WORKER [Primary Care Provider] -
[2017-08-22] MEDS: *HR* Heparin 5,000 UNIT/ML VIAL SQ SCH (05:41)
[2017-08-22 05:45] LABS: Albumin 3.7 g/dL (3.5-5.7); Albumin/Globulin Ratio 1.4 (1.1-2.2); Bilirubin,Direct 0.1 mg/dL (0.0-0.2); Bilirubin,Indirect 0.2 mg/dL (0.0-1.2); Bilirubin,Total 0.3 mg/dL (0.3-1.0); Globulin 2.6 g/dL (2.4-3.5); Total Protein 6.3 g/dL (6.4-8.9)
[2017-08-22] MEDS: Aspirin 81 MG TAB.CHEW PO SCH (07:48)
--- NOTE | 2017-08-22 10:14 | Electrocardiograph Report ---
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
--- NOTE | 2017-08-22 11:47 | Discharge Summary ---
- NOTES TO OUTPATIENT PROVIDER Notes to Outpatient Provider: Cardiac stress test negative for ischemia or infarct, suggest outpatient GI follow to rule out GI source Date of Encounter: 08/22/17 Time of Encounter: 11:40 - Discharge Diagnosis (1) Chest pain Priority: Primary Status: Acute Qualifiers: Chest pain type: unspecified Qualified Code(s): R07.9 - Chest pain, unspecified (2) Pulmonary nodule Priority: Primary Status: Acute Hospital course: Ms. Colin is a 37 year old female past medical history of obesity migraine headaches presented to the emergency department after experiencing chest pain and palpitations for a few days the pain worsened approximately 3 hours before presentation. She had associated symptoms of diaphoresis. Pain occurred mid chest radiating to left arm and neck , was aggravated with exertion 8 out of 10 in intensity there were no alleviating factors. Laboratory workup was unremarkable EKG showed some nonspecific findings she was given nitroglycerin in the emergency room which did relieve her symptoms. She states that she has had gallbladder issues in the past and was supposed to have her gallbladder taken out several years ago however has failed to do so. She was admitted and underwent a nuclear stress test which was negative for ischemia or infarct. Advised patient to follow-up with primary care physician as well as she may require outpatient EGD GI workup. Patient verbalized understanding she is hemodynamically stable at this time and is ready for discharge Discharge discussed with: patient - Time Spent with Patient Total time spent providing and/or coordinating discharge services: - Discharge Medications Home Medications: Aspirin/Acetaminophen/Caffeine [Excedrin Migraine Caplet] 1 - 2 tab PO DAILY PRN 08/19/17 [History] Ibuprofen [Motrin] 200 mg PO Q4HR PRN 08/19/17 [History] Allergies/Adverse Reactions: 3 Allergy/AdvReac Type Severity Reaction Status Date / Time shellfish derived Allergy Anaphylaxis Verified 08/19/17 20:17 nitrofurantoin AdvReac Vomiting Verified 08/19/17 20:17 [From Macrobid] Date of admission: 08/19/17 21:29 Primary care physician: Zunilda Gould CNP Discharging clinician: Dana Aguillon Anticipated date of discharge: 08/22/17 - Constitutional Vitals: Temp Pulse Resp BP Pulse Ox 97.9 F 69 16 106/71 97 08/22/17 06:46 08/22/17 06:46 08/22/17 06:46 08/22/17 06:46 08/22/17 06:46 General appearance: Present: A&O X 3, morbidly obese - Head Head exam: Present: atraumatic, normocephalic - Eye Eye exam: Present: PERRL, conjuntiva pink, sclera anicteric Pupils: Present: PERRL - Neck Neck exam general surgery: Present: supple, trachea midline. Absent: lymphadenopathy - Respiratory Respiratory exam: Present: CTAB. Absent: accessory muscle use, rales, rhonchi, wheezes - Cardiovascular Cardiovascular exam: Present: RRR, +S1, +S2. Absent: diastolic murmur, gallop, rubs, systolic murmur - GI/Abdominal GI/Abdominal exam: Present: normal bowel sounds, soft, no peritoneal signs. Absent: distended, tenderness - Extremities Exam Extremities exam: Present: warm, radial pulses palpable and symmetrical. Absent : calf tenderness, cyanotic, pedal edema - Neurological Exam Neurological exam: Present: CN II-XII intact, oriented X3, no focal deficits. Absent: pronater drift, facial droop, speech deficit - Skin Skin exam: Present: dry, intact - Patient Status Disposition: Home, Self-Care Condition: Fair Functional capacity at discharge: independent ambulation - Discharge Instructions Follow Up With: Zunilda Gould CNP [Primary Care Provider] - 08/30/17 11:00 am (Please follow up with your PCP ) - Diet and Activity Activity: resume usual activities as tolerated Diet: advance to your usual diet - VTE Documentation of Mechanical Device: Intermittent pneumatic compression device
[2017-08-22 12:01] VITALS: BP 115/81
--- NOTE | 2017-08-22 18:42 | Electrocardiograph Report ---
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
== END 2017-08-22 12:32 | disposition home or self-care (01) ==
LOC: 3BNU 12:30 → EMEROO 12:30 → 3BNU 21:39
PROVIDERS: ADMIT Internal Medicine; ATTEND Internal Medicine

== ENCOUNTER 2019-11-06 15:58 | Observation (INO) ==
[2019-11-06] MEDS ORDERED: 0.9 % Sodium Chloride 1,000 ML IVC STA (17:07)
[2019-11-06] MEDS ORDERED: Ondansetron 4 MG/2 ML VIAL IVP STA (17:07)
[2019-11-06] MEDS ORDERED: *HR* FentaNYL (PF) 100 MCG/2 ML VIAL IVP ONE (17:17)
[2019-11-06 17:19] LABS: Basophils % 0.3 %; Eosinophils # 0.1 K/mcL (0.0-0.6); Hematocrit 37.7 % (35.3-44.9); Hemoglobin 11.9 g/dL (11.5-15.4); Immature Granulocytes % 0.2 % (0-4); Lymphocytes # 1.4 K/mcL (0.6-4.6); Mean Corpuscular HGB Conc 31.6 g/dL (31.6-35.5); Mean Corpuscular Hemoglobin 30.9 pg (28.0-33.3); Mean Corpuscular Volume 97.9 fL (83.0-100.0); Mean Platelet Volume 10.3 fL (9.4-12.4); Monocytes # 0.4 K/mcL (0.0-1.3); Monocytes % 6.5 %; Neutrophils # 4.2 K/mcL (1.6-8.9); Platelet Count 177 K/mcL (140-400); Red Blood Count 3.85 M/mcL (3.82-4.97); Red Cell Distribution Width 13.1 % (11.5-14.5); White Blood Count 6.1 K/mcL (4.3-11.1)
[2019-11-06 17:25] LABS: Bilirubin,Urine Negative (Negative); Blood,Urine Negative (Negative); Clarity,Urine Clear (Clear); Color,Urine Colorless (Yellow); Glucose,Urine (UA) Normal (Normal); Ketones,Urine Negative (Negative); Leukocyte Esterase,Urine Negative (Negative); Nitrite,Urine Negative (Negative); PH,Urine 6.5 pH Units (5.0-8.0); Protein,Urine Negative (Neg-Trace); Specific Gravity,Urine 1.007 (1.010-1.025); Urobilinogen,Urine Normal (Normal)
[2019-11-06 17:35] LABS: Alanine Aminotransferase 83 Units/L (7-52); Albumin/Globulin Ratio 1.3 (1.1-2.2); Alkaline Phosphatase 75 Units/L (34-104); Aspartate Amino Transferase 48 Units/L (13-39); BUN/Creatinine Ratio 13 (6-26); Bilirubin,Direct 0.1 mg/dL (0.0-0.2); Bilirubin,Indirect 0.2 mg/dL (0.0-1.0); Bilirubin,Total 0.3 mg/dL (0.3-1.0); Blood Urea Nitrogen 11 mg/dL (6-20); Calcium 9.1 mg/dL (8.6-10.3); Carbon Dioxide 26 mEq/L (23-29); Chloride 105 mEq/L (98-107); Globulin 3.2 g/dL (2.4-3.5); Glucose 78 mg/dL (70-105); Lipase 12 Units/L (11-82); Magnesium 2.2 mg/dL (1.6-2.6); Osmolality,Calculated 286 (280-300); Sodium 139 mEq/L (136-145); Total Protein 7.2 g/dL (6.4-8.9); eGFR For African Americans > 60 (> 60); eGFR For Non-African Americans > 60 (> 60)
[2019-11-06] MEDS ORDERED: Ondansetron 4 MG/2 ML VIAL IVP PRN (18:21)
[2019-11-06] MEDS ORDERED: Naloxone 0.4 MG/ML INJ IVP PRN (18:21)
[2019-11-06 18:50] LABS: Triglycerides 130 mg/dL (< 150)
[2019-11-06 18:51] LABS: Troponin I < 0.03 ng/mL (< 0.04)
[2019-11-06] MEDS: Vancomycin Oral Soln 125 MG/2.5 ML UDC PO SCH (21:47)
[2019-11-06] MEDS: 0.9 % Sodium Chloride 1,000 ML IVC SCH (23:25)
[2019-11-07] MEDS ORDERED: *HR* Promethazine 25 MG/ML VIAL IVP ONE (00:24)
[2019-11-07 05:27] LABS: Basophils % 0.7 %; Eosinophils # 0.1 K/mcL (0.0-0.6); Eosinophils % 1.7 %; Hematocrit 31.8 % (35.3-44.9); Immature Granulocytes % 0.2 % (0-4); Lymphocytes # 1.6 K/mcL (0.6-4.6); Lymphocytes % 39.5 %; Mean Corpuscular HGB Conc 31.4 g/dL (31.6-35.5); Mean Corpuscular Hemoglobin 30.9 pg (28.0-33.3); Mean Corpuscular Volume 98.1 fL (83.0-100.0); Mean Platelet Volume 10.6 fL (9.4-12.4); Monocytes # 0.4 K/mcL (0.0-1.3); Monocytes % 8.4 %; Neutrophils # 2.1 K/mcL (1.6-8.9); Platelet Count 147 K/mcL (140-400); Red Blood Count 3.24 M/mcL (3.82-4.97); Red Cell Distribution Width 13.1 % (11.5-14.5); Segmented Neutrophils % 49.5 %; White Blood Count 4.2 K/mcL (4.3-11.1)
[2019-11-07] MEDS: *HR* Heparin 5,000 UNIT/ML VIAL SQ SCH ×2 (05:33→17:12)
[2019-11-07 05:39] LABS: BUN/Creatinine Ratio 10 (6-26); Blood Urea Nitrogen 8 mg/dL (6-20); Calcium 8.4 mg/dL (8.6-10.3); Carbon Dioxide 26 mEq/L (23-29); Chloride 110 mEq/L (98-107); Glucose 82 mg/dL (70-105); Magnesium 2.1 mg/dL (1.6-2.6); Osmolality,Calculated 287 (280-300); Sodium 140 mEq/L (136-145); eGFR For African Americans > 60 (> 60); eGFR For Non-African Americans > 60 (> 60)
[2019-11-07] MEDS: BuPROPion XL (24 HR) 150 MG TABLET PO SCH (08:43)
[2019-11-07] MEDS: Loratadine 10 MG TABLET PO SCH (08:43)
[2019-11-07] MEDS: Vancomycin Oral Soln 125 MG/2.5 ML UDC PO SCH ×4 (08:44→20:29)
[2019-11-07] MEDS: 0.9 % Sodium Chloride 1,000 ML IVC SCH ×3 (08:46→21:51)
[2019-11-07] MEDS ORDERED: clonazePAM 0.5 MG TABLET PO SCH (09:00)
[2019-11-07] MEDS ORDERED: *HR* Promethazine 25 MG/ML VIAL IVP PRN (09:06)
[2019-11-08] MEDS: clonazePAM 1 MG TABLET PO PRN ×2 (01:39→21:43)
[2019-11-08] MEDS: 0.9 % Sodium Chloride 1,000 ML IVC SCH ×2 (02:20→05:46)
[2019-11-08] MEDS ORDERED: *HR* Dextrose 50 % in Water (Vial) 50 ML VIAL IVP ONE (05:33)
[2019-11-08] MEDS: *HR* Heparin 5,000 UNIT/ML VIAL SQ SCH ×2 (05:45→17:14)
[2019-11-08] MEDS: Pantoprazole 40 MG VIAL IVP SCH (09:13)
[2019-11-08] MEDS: Loratadine 10 MG TABLET PO SCH (09:14)
[2019-11-08] MEDS: BuPROPion XL (24 HR) 150 MG TABLET PO SCH (09:14)
[2019-11-08 11:46] LABS: Alanine Aminotransferase 53 Units/L (7-52); Albumin 3.6 g/dL (3.5-5.7); Albumin/Globulin Ratio 1.4 (1.1-2.2); Alkaline Phosphatase 67 Units/L (34-104); Aspartate Amino Transferase 23 Units/L (13-39); BUN/Creatinine Ratio 7 (6-26); Bilirubin,Indirect 0.3 mg/dL (0.0-1.0); Bilirubin,Total 0.3 mg/dL (0.3-1.0); Blood Urea Nitrogen 5 mg/dL (6-20); Calcium 8.4 mg/dL (8.6-10.3); Carbon Dioxide 26 mEq/L (23-29); Chloride 109 mEq/L (98-107); Globulin 2.5 g/dL (2.4-3.5); Glucose 83 mg/dL (70-105); Osmolality,Calculated 284 (280-300); Potassium 3.8 mEq/L (3.5-5.1); Sodium 139 mEq/L (136-145); Total Protein 6.1 g/dL (6.4-8.9); eGFR For African Americans > 60 (> 60); eGFR For Non-African Americans > 60 (> 60)
[2019-11-08] MEDS ORDERED: Acetaminophen 325 MG TABLET PO PRN (12:48)
[2019-11-09 03:50] LABS: BUN/Creatinine Ratio 10 (6-26); Blood Urea Nitrogen 7 mg/dL (6-20); Calcium 9.2 mg/dL (8.6-10.3); Carbon Dioxide 22 mEq/L (23-29); Chloride 108 mEq/L (98-107); Glucose 83 mg/dL (70-105); Magnesium 1.8 mg/dL (1.6-2.6); Osmolality,Calculated 285 (280-300); Phosphorous 4.1 mg/dL (2.7-4.5); Potassium 3.7 mEq/L (3.5-5.1); Sodium 139 mEq/L (136-145); eGFR For African Americans > 60 (> 60); eGFR For Non-African Americans > 60 (> 60)
[2019-11-09] MEDS: *HR* Heparin 5,000 UNIT/ML VIAL SQ SCH (06:03)
[2019-11-09 07:09] LABS: Basophils % 0.4 %; Eosinophils # 0.1 K/mcL (0.0-0.6); Eosinophils % 1.9 %; Hematocrit 33.6 % (35.3-44.9); Hemoglobin 10.8 g/dL (11.5-15.4); Immature Granulocytes % 0.2 % (0-4); Lymphocytes # 1.4 K/mcL (0.6-4.6); Lymphocytes % 25.8 %; Mean Corpuscular HGB Conc 32.1 g/dL (31.6-35.5); Mean Corpuscular Hemoglobin 30.5 pg (28.0-33.3); Monocytes # 0.5 K/mcL (0.0-1.3); Monocytes % 8.9 %; Neutrophils # 3.3 K/mcL (1.6-8.9); Platelet Count 147 K/mcL (140-400); Red Blood Count 3.54 M/mcL (3.82-4.97); Red Cell Distribution Width 12.7 % (11.5-14.5); Segmented Neutrophils % 62.8 %; White Blood Count 5.3 K/mcL (4.3-11.1)
[2019-11-09 07:19] VITALS: BP 137/59
[2019-11-09 07:52] LABS: Mean Corpuscular Volume 94.9 fL (83.0-100.0)
[2019-11-09] MEDS: BuPROPion XL (24 HR) 150 MG TABLET PO SCH (08:12)
[2019-11-09] MEDS: Pantoprazole 40 MG VIAL IVP SCH ×2 (08:12→08:15)
[2019-11-09] MEDS: Loratadine 10 MG TABLET PO SCH (08:12)
== END 2019-11-09 11:13 | disposition home or self-care (01) ==
LOC: 3ANU 15:58 → EMEROOARM 15:58 → 3ANU 18:42
PROVIDERS: ADMIT Internal Medicine; ATTEND Internal Medicine